=== PATIENT | female | born 1940 | race Caucasian/White ===

== ENCOUNTER 2019-05-28 06:52 | Inpatient (IN) ==
[2019-05-24 13:50] LABS: Appearance,Urine HAZY; Bacteria,Urine FEW /hpf (0); Bilirubin,Urine NEG (NEG); Color,Urine YELLOW; Culture Indicated,Urine NO; Glucose,Urine (UA) NEGATIVE (NEG); Ketones,Urine NEG (NEG); Leukocyte Esterase,Urine 500 /uL (NEG); Mucus,Urine MANY /hpf (0); Nitrate,Urine POS (NEG); Protein,Urine NEG (NEG); Specific Gravity,Urine 1.021 (1.000-1.035); Urine Blood NEG mg/dL (<0.03); Urine Budding Yeast FEW /hpf (0); Urine RBC 19 /hpf (0-1); Urine Squamous Epithelial Cell 5 /hpf (0-4); Urine Transitional Epi Cells 1 /hpf (0-2); Urine WBC > 182 /hpf (0-4); Urobilinogen,Urine NEG (NEG)
[2019-05-24 13:53] LABS: Blood Urea Nitrogen 12 mg/dl (8-23); Calcium 10.1 mg/dl (8.6-10.4); Carbon Dioxide 25 mmol/L (22-30); Chloride 100 mmol/L (96-108); Glomerular Filtration Rate 70; Glucose 97 mg/dL (70-105)
[2019-05-24 13:59] LABS: Basophils # (Auto) 0.06 K/mcL (0.00-0.30); Basophils % (Auto) 0.9 % (0.0-2.0); Eosinophils # (Auto) 0.13 K/mcL (0.00-0.70); Eosinophils % (Auto) 1.9 % (0.0-7.0); Granulocytes % (Auto) 66.7 % (38.0-78.0); Hematocrit 45.4 % (34.1-44.9); Lymphocytes # (Auto) 1.47 K/mcL (1.50-4.80); Lymphocytes % (Auto) 21.6 % (15.5-49.0); Mean Cell Volume 92.8 fL (80.0-100.0); Mean Platelet Volume 9.5 fL (7.4-10.4); Monocytes # (Auto) 0.61 K/mcL (0.10-0.90); Monocytes % (Auto) 8.9 % (1.0-12.0); Platelet Count 276 K/mcL (140-440); RBC 4.89 M/mcL (3.59-5.38); Red Cell Distribution Width 12.5 % (11.5-14.5); WBC 6.8 K/mcL (4.50-11.00)
[2019-05-24 14:12] LABS: Prothrombin Time 12.8 sec (11.9-14.5)
[~2019-05-28 06:52] MED LIST: CELECOXIB 200 MG CAPSULE PO SCH; IPRATROPIUM/ALBUTEROL 3 ML AMPUL.NEB NEB PRN; PREGABALIN 75 MG CAPSULE PO SCH; SCOPOLAMINE 1 PATCH PATCH TOPICAL PRN; ceFAZolin 2 GM in DEXTROSE 5% IN WATER 50 ML IV SCH; oxyCODONE 10 MG TAB.ER.12H PO SCH
[2019-05-28] MEDS ORDERED: PHENYLEPHRINE 10 MG/ML VIAL IV ONE (10:35)
[2019-05-28] MEDS ORDERED: DEXAMETHASONE 10 MG/ML VIAL IV ONE ×2 (10:35→19:19)
[2019-05-28] MEDS ORDERED: TRANEXAMIC ACID 1,000 MG/10 ML VIAL IV ONE ×2 (10:35→12:23)
[2019-05-28] MEDS ORDERED: MIDAZOLAM 2 MG/2 ML VIAL IV ONE (10:35)
[2019-05-28] MEDS ORDERED: ROCURONIUM 10 MG/ML ML IV ONE (10:35)
[2019-05-28] MEDS ORDERED: PROPOFOL 200 MG/20 ML VIAL IV ONE ×2 (10:35→18:09)
[2019-05-28] MEDS ORDERED: KETAMINE 100 MG/ML ML IV ONE (10:35)
[2019-05-28] MEDS ORDERED: ONDANSETRON 4 MG/2 ML VIAL IV ONE (10:35)
[2019-05-28] MEDS ORDERED: LIDOCAINE HCL/PF 100 MG/5 ML SYRINGE IV ONE (10:35)
[2019-05-28] MEDS ORDERED: GLYCOPYRROLATE 0.2 MG/ML VIAL IV ONE (10:35)
[2019-05-28] MEDS ORDERED: GENTAMICIN SULFATE 800 MG/20 ML VIAL IR ONE (10:56)
[2019-05-28] MEDS ORDERED: ACETAMINOPHEN 1,000 MG/100 ML BOTTLE IV ONE (12:04)
[2019-05-28] MEDS ORDERED: ONDANSETRON 4 MG/2 ML VIAL IV PRN ×3 (12:04→19:41)
[2019-05-28] MEDS ORDERED: IPRATROPIUM/ALBUTEROL 3 ML AMPUL.NEB NEB PRN (12:04)
[2019-05-28] MEDS ORDERED: METHOCARBAMOL 1,000 MG/10 ML VIAL IV PRN (12:04)
[2019-05-28] MEDS ORDERED: MEPERIDINE 25 MG/ML SYRINGE IV PRN (12:04)
[2019-05-28] MEDS ORDERED: fentaNYL 100 MCG/2 ML VIAL IV PRN (12:04)
[2019-05-28] MEDS ORDERED: LACTATED RINGERS 1,000 ML IV SCH ×2 (12:15→19:45)
[2019-05-28] MEDS ORDERED: POLYETHYLENE GLYCOL 3350 17 GM PACKET PO PRN ×2 (12:22→12:23)
--- NOTE | 2019-05-28 12:22 | Brief Operative Note ---
Date of procedure: 05/28/19 Pre-op diagnosis: left hip osteoarthritis Post-op diagnosis: same Procedure: left total hip arthroplasty Grafts/Implants: Yes Anesthesia: spinal Complications: none Surgeon: Rico Red Box Office Agent: Zachary Fernandez Estimated blood loss (cc): 200 Specimens Removed/Pathology: none sent Condition: stable Disposition: PACU
--- NOTE | 2019-05-28 12:22 | Discharge Summary ---
Ortho Discharge - [facility] - Patient Instructions Diet: Regular Diet Activity: ambulate with assistive device, weight bearing as tolerated Total Hip Protocol: Follow activity instructions as provided by Physical Therapy. Dressing Care: May shower in 2 days - Follow Up Plan Disposition: Xfer SNF Prognosis: Good Rehab Potential: Good I certify that the patient requires SNF services: Yes Overall status at discharge: patient is progressing back to baseline
[2019-05-28] MEDS ORDERED: HYDROcodone/APAP 10/325MG TABLET PO PRN (12:23)
[2019-05-28] MEDS ORDERED: BISACODYL 10 MG SUPP.RECT PR PRN (12:23)
[2019-05-28] MEDS ORDERED: ONDANSETRON 4 MG ODT TABLET SL PRN (12:23)
[2019-05-28] MEDS ORDERED: BENZOCAINE/MENTHOL 1 LOZENGE PO PRN (12:23)
[2019-05-28] MEDS ORDERED: MAGNESIUM HYDROXIDE 30 ML ORAL.SUSP PO PRN (12:23)
[2019-05-28] MEDS ORDERED: FLEETS ADULT ENEMA PR PRN (12:23)
--- NOTE | 2019-05-28 13:22 | XRay Report ---
HISTORY: Postop left hip replacement FINDINGS: There is a well-positioned left total hip prosthesis. There is no fracture or abnormal soft tissue calcification. Severe arthritis is present in the facet joints at L5-S1. The right hip joint is normal in width. IMPRESSION: Well-positioned left hip prosthesis Interpreted and Authenticated by: Marlon Boyer 05/28/19
[2019-05-28] MEDS ORDERED: 0.9 % SODIUM CHLORIDE 10 ML SYRINGE IV SCH (14:00)
[2019-05-28] MEDS: LACTATED RINGERS 1,000 ML IV SCH ×2 (15:03→16:21)
[2019-05-28] MEDS: KETOROLAC 15 MG/ML VIAL IV PRN (15:10)
--- NOTE | 2019-05-28 15:12 | Operative Note ---
DATE OF OPERATION: 05/28/2019 PREOPERATIVE DIAGNOSIS: Degenerative joint disease, left hip. POSTOPERATIVE DIAGNOSIS: Degenerative joint disease, left hip. PROCEDURE: Left total hip arthroplasty. SURGEON: Tripp Red M.D. [employer]PER[employer]OR [employer] SURGEON: Zachary Fernandez PA-C. The PA's assistance was required for the safe and efficient completion of the entire case. This provider's expertise and technical skill were required throughout the case. The PA assisted with preoperative coordination, intraoperative retraction, wound closure, dressing and splint application, as well as postoperative documentation and care coordination. ANESTHESIA: Spinal with LMA assist. ESTIMATED BLOOD LOSS: 150 mL. COMPLICATIONS: None noted. SPECIMENS REMOVED: None. DRAINS: None. IMPLANTS: DePuy [place] Hole Eliminator; DePuy [place] Gription acetabular shell 50 mm; DePuy [place] cancellous bone screw 6.5 x 20; DePuy [place] Altrx polyethylene acetabular liner neutral 32 x 50; DePuy femoral stem Actis Duofix hip prosthesis, cementless, size 6 standard collar; DePuy Biolox delta ceramic femoral head +1, 32 mm diameter. INDICATIONS: The patient has had a longstanding history of worsening pain in the hip that has failed conservative treatment. Radiographs have confirmed advanced degenerative joint disease. After a long discussion about treatment options, the patient elected to proceed with a hip arthroplasty. The risks and benefits were discussed with the patient in detail including, but not limited to, the risks of anesthesia, problems with the heart or lungs related to anesthesia, infection, compromise or injury to the nerves and blood vessels, deep venous thrombosis, pulmonary embolism, pneumonia, continued pain after surgery, worsening pain or symptoms after surgery, swelling, loss of motion, instability, leg length discrepancy, and need for repeat surgery. DESCRIPTION OF PROCEDURE: The patient was seen in pre-anesthesia waiting room where all questions were answered and the correct side and site were identified and marked. The patient was then brought to the operating room and administered the anesthetic and given pre-operative antibiotics. A timeout was then called. The patient was placed on the [place] table with all prominences well-padded in a standard fashion. Radiographs were taken preliminarily. Anesthesia gave the patient 1 gram of tranexamic acid via an intravenous route. A standard anterior approach was made. We dissected through the skin and subcutaneous tissue and mobile window was created medially and laterally. We placed the preliminary retractor and we came down and visualized the tensor fasciae latae. The tensor fasciae latae was split in line with the incision. I used an Allis clamp to grab the superior aspect of the tensor fasciae latae. We then split the soft tissue underneath the muscle and dissected down into the interval. The tensor fasciae latae was retracted laterally. We came down and split underneath the reflected head of the rectus and rectus for visualization. I then went through some of the fatty tissue and found the lateral femoral circumflex vessels which were coagulated with cautery. I then came down and visualized the capsule. I made an inverted L-shaped incision in the capsule. I placed a tag stitch for later repair. The retractors were placed on the inside of the capsule visualizing the neck. I then brought the saw down to visualize our neck cut. The cut was made and I placed a corkscrew into the head and removed the head. We then placed two turns of traction and some external rotation to visualize the acetabulum. Cobra retractors were placed along the acetabulum for visualization. I used a long-handled knife I was able to perform a complete labral excision. I then removed soft tissue from the pulvinar and the acetabulum. I then began to ream and reamed up to a size 49. Preliminary radiographs were again used. We used JointPoint and got the acetabulum in anatomic position. I then impacted the final Manitou Gription acetabular shell 50 mm diameter with about 45 degrees of abduction and about 20 degrees of anteversion. I placed one Manitou cancellous bone screw 6.5 x 20. I then placed the Altrx polyethylene acetabular liner, neutral 32 x 50. Once this was done, we released some of the capsule along the acetabulum and as well as the greater trochanter, preserving the piriformis. The foot was dropped and brought across in adduction and we exposed the femoral canal. I then used the alaTest cutter, followed by the canal finder and the rasp, and I sequentially broached up to a size 6. I placed a trial size 6 standard collar with a +1 mm head. This was reduced. We used the JointPoint to confirm that our anteversion and leg length were anatomic. She was 4 mm short, so we brought her out to neutral. I then brought this out and thoroughly irrigated with Irrisept and jet lavage. We removed all trials and impacted the femoral stem to its broached location and placed the head. Final reduction was performed. Again, good stability, leg length, and offset characteristics were noted and visualized again with the JointPoint system. We irrigated with three liters of antibiotic saline. We closed the capsule with #2 FiberWire. We closed the fascia with a combination of 0 Vicryl and 0 Maxon. We closed the subcutaneous tissue and skin in layers out to Dermabond on the skin. A sterile pressure dressing was applied. All needle and sponge counts were correct. The patient was transferred to the recovery room in stable condition. JACI:isabel Job ID: [id number] Doc ID: [id number] Tripp Red MD
--- NOTE | 2019-05-28 16:18 | XRay Report ---
HISTORY: FINDINGS: IMPRESSION: 0.7 minutes of fluoroscopy time was used. Interpreted and Authenticated by: Marlon Boyer 05/28/19
[2019-05-28 18:08] LABS: Basophils # (Auto) 0.05 K/mcL (0.00-0.30); Basophils % (Auto) 0.3 % (0.0-2.0); Eosinophils # (Auto) 0.01 K/mcL (0.00-0.70); Eosinophils % (Auto) 0.1 % (0.0-7.0); Granulocytes % (Auto) 84.9 % (38.0-78.0); Hematocrit 43.8 % (34.1-44.9); Hemoglobin 14.5 g/dL (11.2-15.7); Lymphocytes # (Auto) 2.27 K/mcL (1.50-4.80); Lymphocytes % (Auto) 12.2 % (15.5-49.0); Mean Cell Volume 92.4 fL (80.0-100.0); Mean Corpuscular HGB Conc 33.1 g/dL (31.0-36.0); Mean Platelet Volume 9.2 fL (7.4-10.4); Monocytes # (Auto) 0.46 K/mcL (0.10-0.90); Monocytes % (Auto) 2.5 % (1.0-12.0); Platelet Count 259 K/mcL (140-440); RBC 4.74 M/mcL (3.59-5.38); Red Cell Distribution Width 12.3 % (11.5-14.5); WBC 18.7 K/mcL (4.50-11.00)
[2019-05-28] MEDS ORDERED: PROPOFOL 100 ML IV ONE (18:09)
[2019-05-28 18:31] LABS: ALT/SGPT 22 U/l (0-40); AST/SGOT 32 U/l (0-37); Albumin 3.8 gm/dL (3.2-5.2); Albumin/Globulin Ratio 1.7 (1.0-2.3); Alkaline Phosphatase 44 U/L (39-117); Bilirubin,Direct < 0.2 mg/dL (0.0-0.3); Bilirubin,Total 0.4 mg/dL (0.0-1.0); Blood Urea Nitrogen 11 mg/dl (8-23); Calcium 8.8 mg/dl (8.6-10.4); Carbon Dioxide 21 mmol/L (22-30); Chloride 100 mmol/L (96-108); Globulin 2.2 gm/dL (2.2-3.7); Glomerular Filtration Rate 70; Glucose 229 mg/dL (70-105); Lactate Dehydrogenase 281 U/L (94-250); Phosphorous 3.7 mg/dL (2.7-4.5); Triglycerides 67 mg/dl (<150); Uric Acid 3.4 mg/dL (2.5-8.0)
[2019-05-28 18:34] LABS: Prothrombin Time 12.9 sec (11.9-14.5)
--- NOTE | 2019-05-28 18:50 | XRay Report ---
HISTORY: Intubated following cardiac arrest FINDINGS: Endotracheal tube has been inserted. The tip is 1.5 cm above the jose david. There is no pneumothorax or widening of the mediastinum. Mild interstitial lung disease is present bilaterally with the greatest involvement in the lung bases. The heart size is normal. No pleural effusion is present. IMPRESSION: Low-lying endotracheal tube. This could be pulled back 1 to 2 cm. Diffuse interstitial lung disease which could be due to inflammation or fibrosis. Interpreted and Authenticated by: Marlon Boyer 05/28/19
--- NOTE | 2019-05-28 19:00 | Cat Scan Report ---
History: Cardiopulmonary arrest and intubated TECHNIQUE: The chest was imaged dynamically during injection of intravenous nonionic contrast. Sagittal, coronal and axial MIPS images were created. The radiation exposure was limited using dose reduction technology. FINDINGS: There is no evidence of pulmonary emboli. The heart is normal in size and contour. There are no apparent calcified plaques in the coronary arteries. This is a low-lying endotracheal tube with the tip 1.5 cm above the jose david. Several of the tube no foreign body or ingested material is seen within the trachea or bronchi. The patient does have pulmonary fibrosis. There are bands of scar tissue in both lower lobes and posterior The upper lobes. There is mild to moderate bronchiectasis in the right lower lobe. There is no evidence of aspiration or consolidating infiltrate. There is some pleural thickening posteriorly in the right lower thorax. The esophagus is distended with a large amount of fluid. The fluid extends up to the thoracic inlet. The stomach is also distended with a large amount of ingested fluid and air. There is nasogastric tube with the tip in the cardia of the stomach. Incidentally noted is a 3 cm cyst high in the right lobe of liver. IMPRESSION: No evidence of pulmonary emboli or aspiration. Distended stomach and fluid-filled dilated esophagus Pulmonary fibrosis and bronchiectasis Dr. Hamm was called with the results Interpreted and Authenticated by: Marlon Boyer 05/28/19
--- NOTE | 2019-05-28 19:33 | Internal Medicine Consult Note ---
Medical - CN: HPI - Data of Consult Consult date: 05/28/19 Requesting physician: Rico Red Primary Care Provider: Scar Orosco - Consult Narrative History of present illness: Ms. Oneal is a 79 year old F Is a 79-year female who underwent elective total hip arthroplasty today. She arrived on the floor after lunch. For dinner she had large cup of fluid and ate all her dinner. And shortly thereafter appeared to have a respiratory arrest leading to cardiac arrest. Pulses loss from probably 30 seconds or less. Upon [place] however she was not protecting her airway and thus intubation was performed by anesthesia. She was moved back to ICU. She eventually went under a CTA of the chest which showed no evidence of PE or aspiration but did show distended stomach and fluid-filled dilated esophagus. Also incidentally notes some fibrosis and bronchiectasis. Her mentation cleared and she came around after coming back from imaging and showed complete responsiveness and obeying commands. She does have a history of vocal cord paralysis, however, when anesthesia tried to intubate her they noted that her vocal cords were shut tight and she eventually needed paralytic to be intubated. I suspect that the etiology is probably a preceding irritation of the vocal cords from today's surgery coupled with the large amounts of fluid and food she had afterwards leading to refluxing up the esophagus and onto the vocal cord causing severe spasm resulting in respiratory arrest and subsequently cardiac arrest. Laboratory work is essentially unremarkable. Troponin unremarkabe. Lactate is elevated as expected. Reactive leukocytosis. EKG was unremarkable. Is stable and doing well in the ICU. Unable to gather review of systems given intubation CC: Rico Red Medical - CN: PM Medical history: Past medical history: Vocal cord paralysis Hypothyroidism Osteoarthritis GERD Hyper parathyroidism Hypercholesterolemia Past surgical history includes parathyroidectomy hysterectomy Tracheostomy in the past Family: Sister and brother with skin cancer Medical - CN: Meds Home Medications Medication Instructions Recorded Confirmed Type Acetaminophen (Pp) [Tylenol] 325 mg PO DAILYP PRN 05/24/19 05/24/19 History Alendronate Sodium [Fosamax] 70 mg PO TH@0900 05/24/19 05/24/19 History Ferrous Sulfate [Iron] 325 mg PO BID@08,12 05/24/19 05/24/19 History Levothyroxine [Synthroid] 88 mcg PO HS 05/24/19 05/24/19 History Lovastatin [Mevacor] 20 mg PO HS 05/24/19 05/24/19 History Melatonin 10 mg PO HS 05/24/19 05/24/19 History Multivit,Ther Iron,Ca,FA & Min 1 tab PO DAILY 05/24/19 05/24/19 History [Multivitamin W/Minerals] Omeprazole 40 mg PO HS 05/24/19 05/24/19 History Oxybutynin Chloride [Ditropan Xl] 5 mg PO DAILY@1800 05/24/19 05/24/19 History Polyethylene Glycol 3350 [Miralax] 17 gm PO DAILYP PRN 05/24/19 05/24/19 History Propylene Glycol [Systane Balance] 1 gtt OU BID 05/24/19 05/24/19 History Timolol 0.5% Ophth Drops [Timoptic 1 gtt OD DAILY 05/24/19 05/24/19 History 0.5% Ophth Drops] Zolpidem [Ambien] 5 mg PO HS 05/24/19 05/24/19 History Aspirin [Aspirin EC] 81 mg PO BID #60 tablet.dr 05/28/19 Rx HYDROcodone/APAP 10/325MG [[place] 1 - 2 tab PO Q4H PRN #60 tab 05/28/19 Rx 10-325Mg] Allergies Allergy/AdvReac Type Severity Reaction Status Date / Time No Known Drug Allergies Allergy Unverified 05/24/19 10:18 Medical - CN: Exam - Constitutional Vitals: Temp Pulse Resp BP Pulse Ox 97.7 F 83 16 114/75 100 05/28/19 16:00 05/28/19 16:00 05/28/19 16:00 05/28/19 16:00 05/28/19 16:00 Exam: General: Alert, Awake, No acute Distress Eyes/N/T: EOMI, PERRL, Head/Neck: neck supple, normocephalic atraumatic CV: RRR, No murmurs, normal s1/s2 Pulm: Clear b/l, no wheezing/rhonchi/rales Abd: soft, nontender, +BS x4 Ext: no clubbing/cyanosis/edema Neuro: Alert, no focal deficits, moves all extremities, CN 2-12 grossly intact, symmetrical strength b/l upper/lower, sensations intact b/l upper/lower Skin: warm/dry Medical - CN: Result - Labs CBC & Chem 7: 05/28/19 17:38 05/28/19 17:38 Labs: Short CBC 05/28/19 Range/Units 17:38 WBC 18.7 H (4.50-11.00) K/mcL Hgb 14.5 (11.2-15.7) g/dL Hct 43.8 (34.1-44.9) % Plt Count 259 (140-440) K/mcL BMP 05/28/19 17:38 Sodium 136 Potassium 4.1 Chloride 100 Carbon Dioxide 21 L BUN 11 Creatinine 0.8 Glucose 229 H Calcium 8.8 Cardiac Enzymes 05/28/19 Range/Units 17:38 Troponin T < 0.01 (0-0.03) ng/ml Liver Function 05/28/19 Range/Units 17:38 Total Bilirubin 0.4 (0.0-1.0) mg/dL Direct Bilirubin < 0.2 (0.0-0.3) mg/dL GGT 13 (5-36) U/L AST 32 (0-37) U/l ALT 22 (0-40) U/l Alkaline Phosphatase 44 (39-117) U/L Albumin 3.8 (3.2-5.2) gm/dL Medical - CN: A/P - Narrative A/P Narrative: A: *Respiratory arrest leading to brief cardiac arrest: without pulse for less than 30 seconds. No epi occasions given. -Appeared to have severe bronchospasm on intubation -I suspect that the etiology is probably a preceding irritation of the vocal cords from the same day's surgery coupled with the large amounts of fluid and food she had at dinner leading to refluxing up the esophagus and onto the vocal cord causing severe spasm resulting in respiratory arrest and subsequently cardiac arrest. -CTA unremarkable except for dilated stomach and fluid-filled esophagus and incidentally noted fibrosis/bronchiectasis -EKG/trop ok *h/o cord paralysis with history of tracheostomy in the past: *GERD *HLD *Hypothyroid: * P: -vent managment -Decadron x1 given difficulty in intubation -will extubate with anesthesia present -PPI -ortho for hip -pt/ot -ppx: lovenox
[2019-05-28] MEDS ORDERED: ACETAMINOPHEN 160 MG/5 ML ORAL.SOL PT PRN (19:41)
[2019-05-28] MEDS: OXYBUTYNIN CHLORIDE 5 MG TAB.XL.24H PO SCH (20:10)
[2019-05-28] MEDS: ceFAZolin 1 GM VIAL IV SCH (20:48)
[2019-05-28] MEDS: PANTOPRAZOLE 40 MG VIAL IV SCH (20:49)
[2019-05-28] MEDS ORDERED: DOCUSATE SODIUM 100 MG CAPSULE PO SCH (21:00)
[2019-05-28] MEDS: DOCUSATE SODIUM 100 MG CAPSULE PO SCH (21:11)
[2019-05-28] MEDS: ASPIRIN 81 MG TAB.CHEW PO SCH (21:11)
[2019-05-28] MEDS: SENNOSIDES 1 TABLET PO SCH (21:11)
[2019-05-28] MEDS: OMEPRAZOLE 20 MG CAPSULE PO SCH (21:11)
[2019-05-28] MEDS: SIMVASTATIN 10 MG TABLET PO SCH (21:12)
[2019-05-28] MEDS: LEVOTHYROXINE 88 MCG TABLET PO SCH (21:12)
[2019-05-28] MEDS: 0.9 % SODIUM CHLORIDE 10 ML SYRINGE IV SCH (23:10)
[2019-05-29] MEDS ORDERED: 0.9 % SODIUM CHLORIDE 250 ML IV ONE (03:00)
[2019-05-29] MEDS ORDERED: DEXMEDETOMIDINE 100 ML IV ONE (03:02)
[2019-05-29] MEDS: DEXMEDETOMIDINE 400 MCG in PREMIX 1 BAG IV SCH (03:10)
[2019-05-29] MEDS: LACTATED RINGERS 1,000 ML IV SCH ×2 (04:12→21:59)
[2019-05-29] MEDS: ceFAZolin 1 GM VIAL IV SCH (04:17)
[2019-05-29] MEDS: LACTATED RINGERS 250 ML IV SCH ×2 (04:19→04:20)
[2019-05-29] MEDS: 0.9 % SODIUM CHLORIDE 10 ML SYRINGE IV SCH ×3 (06:01→21:28)
[2019-05-29 06:29] LABS: Hematocrit 35.3 % (34.1-44.9); Mean Cell Volume 90.3 fL (80.0-100.0); Mean Platelet Volume 9.8 fL (7.4-10.4); Platelet Count 208 K/mcL (140-440); RBC 3.91 M/mcL (3.59-5.38); Red Cell Distribution Width 12.3 % (11.5-14.5); WBC 10.9 K/mcL (4.50-11.00)
[2019-05-29 06:52] LABS: Bilirubin,Direct < 0.2 mg/dL (0.0-0.3); Chloride 100 mmol/L (96-108)
[2019-05-29 06:55] LABS: ALT/SGPT 15 U/l (0-40); AST/SGOT 29 U/l (0-37); Albumin 3.2 gm/dL (3.2-5.2); Albumin/Globulin Ratio 1.7 (1.0-2.3); Alkaline Phosphatase 33 U/L (39-117); Bilirubin,Total 0.3 mg/dL (0.0-1.0); Blood Urea Nitrogen 15 mg/dl (8-23); Calcium 8.4 mg/dl (8.6-10.4); Carbon Dioxide 20 mmol/L (22-30); Globulin 1.9 gm/dL (2.2-3.7); Glomerular Filtration Rate 70; Glucose 174 mg/dL (70-105); Lactate Dehydrogenase 239 U/L (94-250); Phosphorous 3.2 mg/dL (2.7-4.5); Triglycerides 65 mg/dl (<150); Uric Acid 3.6 mg/dL (2.5-8.0)
[2019-05-29] MEDS ORDERED: LACTATED RINGERS 1,000 ML IV ONE ×3 (07:10→09:24)
--- NOTE | 2019-05-29 07:35 | Internal Med Progress Note ---
Medical - PN: Subj Patient information: Note initiated : 05/29/19 at 7:32 am Service Date, if different from initiated Date: [] Patient: Sharon Oneal 79 y/o F admitted on 05/28/19 for Left Anterior Total Hip Arthroplasty. Chief Complaint: [] Interval history: Is a 79-year female who underwent elective total hip arthroplasty today. She arrived on the floor after lunch. For dinner she had large cup of fluid and ate all her dinner. And shortly thereafter appeared to have a respiratory arrest leading to cardiac arrest. Pulses loss from probably 30 seconds or less. Upon [place] however she was not protecting her airway and thus intubation was performed by anesthesia. She was moved back to ICU. She eventually went under a CTA of the chest which showed no evidence of PE or aspiration but did show distended stomach and fluid-filled dilated esophagus. Also incidentally notes some fibrosis and bronchiectasis. Her mentation cleared and she came around after coming back from imaging and showed complete responsiveness and obeying commands. She does have a history of vocal cord paralysis, however, when anesthesia tried to intubate her they noted that her vocal cords were shut tight and she eventually needed paralytic to be intubated. I suspect that the etiology is probably a preceding irritation of the vocal cords from today's surgery coupled with the large amounts of fluid and food she had afterwards leading to refluxing up the esophagus and onto the vocal cord causing severe spasm resulting in respiratory arrest and subsequently cardiac arrest. Laboratory work is essentially unremarkable. Troponin unremarkabe. Lactate is elevated as expected. Reactive leukocytosis. EKG was unremarkable. Is stable and doing well in the ICU. 05/29 Patient alert and awake on the vent this morning. Low urine output and bolusing lactated Ringer With improvement. No pains or complaints. Currently on CPAP trial. Review of Systems: denies headache/fever/chills/nausea/vomiting/chest or abdominal pain/cough/dyspnea/diarrhea. Otherwise see above. - Constitutional Vitals: Vital Signs Temp Pulse Resp BP Pulse Ox 99.3 F H 65 16 88/47 99 05/29/19 07:01 05/29/19 07:01 05/29/19 07:01 05/29/19 07:01 05/29/19 07:01 Period Temp Pulse Resp BP Sys/Goldman Pulse Ox Last 24 Hr 93.0 F-99.3 F 62-136 12-26 66-178/40-121 95-100 Intake and Output 05/28/19 05/29/19 05/29/19 21:59 05:59 13:59 Intake Total 505 331 6 Output Total 410 65 Balance 505 -79 -59 Weight 69.853 kg Intake & Output: Intake & Output 05/28/19 05/29/19 05/29/19 21:59 05:59 13:59 Intake Total 505 331 6 Output Total 410 65 Balance 505 -79 -59 Weight 69.853 kg Intake: IV 25 331 6 Sodium Chloride 0.9% 250 ml @ 250 Wide Open IV BOLUS ONE Rx#: [id number] Precedex 400 Mcg/100 ml 34 6 Dextrose 400 Mcg In Premix 1 Bag @ 0.2 MCG/KG/HR 3.493 mls/ hr IV .Q24H JESSICA Rx#:[id number] Diprivan 100 ml @ 0 mls/hr IV . 25 47 STK-MED ONE Rx#:[id number] Oral 480 Tube Feeding 0 Output: Gastric Drainage 250 NG/OG 250 Urine Catheter Amount 160 65 Other: Meal Dinner Percent of Meal Consumed 100% Feeding Ability Independent Urine Appearance Clear Uretheral (Cam[place]) Clear Urine Color Bright Yellow Uretheral ([place]) Bright Yellow Exam: General: Alert, Awake, No acute Distress Eyes/N/T: EOMI, , Head/Neck: neck supple, CV: RRR, No murmurs, Pulm: Clear b/l, no wheezing/rhonchi/rales Abd: soft, nontender, +BS x4 Ext: no clubbing/cyanosis/edema Neuro: Alert, no focal deficits, moves all extremities, Skin: warm/dry Medical - PN: Obj Da - Labs CBC & Chem 7: 05/29/19 05:00 05/29/19 05:00 Labs: Abnormal Lab Results 05/29/19 05/28/19 05/28/19 05:00 17:50 17:38 WBC Gran % Lymph % (Auto) Gran # VBG Lactic Acid 3.1 H Carbon Dioxide 20 L 21 L Glucose 174 H 229 H Calcium 8.4 L Alkaline Phosphatase 33 L Lactate Dehydrogenase 281 H Total Protein 5.1 L Globulin 1.9 L 05/28/19 17:38 WBC 18.7 H Gran % 84.9 H Lymph % (Auto) 12.2 L Gran # 15.88 H VBG Lactic Acid Carbon Dioxide Glucose Calcium Alkaline Phosphatase Lactate Dehydrogenase Total Protein Globulin Meds: Medications Acetaminophen (Tylenol) 650 mg PT Q6HP PRN PRN Reason: PAIN/FEVER > 101 Hydrocodone Bitart/Acetaminophen ([place] 10/325mg) 0 tab PO Q4HP PRN PRN Reason: PAIN LEVEL 3-6 Last Admin: 05/28/19 16:07 Dose: 1 tab Documented by: Aspirin (Aspirin) 81 mg PO BID [facility] Last Admin: 05/28/19 21:11 Dose: Not Given Documented by: Bisacodyl (Dulcolax) 10 mg WI Q2-3DAYS PRN PRN Reason: Constipation Chlorhexidine Gluconate (Peridex) 15 ml SWABMOUTH BID [facility] Docusate Sodium (Colace) 100 mg PO BID [facility] Last Admin: 05/28/19 21:11 Dose: Not Given Documented by: Enoxaparin Sodium (Lovenox) 40 mg SQ DAILY [facility] Dexmedetomidine HCl 400 mcg/ (Premix) 100 mls @ 3.493 mls/hr IV .Q24H [facility]; Protocol Last Titration: 05/29/19 06:37 Dose: 0 mcg/kg/hr, 0 mls/hr Documented by: Lactated Ringer's (Lactated Ringers) 1,000 mls @ 75 mls/hr IV .[id number] [facility] Last Admin: 05/29/19 04:12 Dose: 75 mls/hr Documented by: Ketorolac Tromethamine (Toradol) 15 mg IV Q6HP PRN PRN Reason: Pain Stop: 05/30/19 12:25 Last Admin: 05/28/19 15:10 Dose: 15 mg Documented by: Levothyroxine Sodium (Synthroid) 88 mcg PO [facility] Last Admin: 05/28/19 21:12 Dose: Not Given Documented by: Magnesium Hydroxide (Milk Of Magnesia) 30 ml PO BIDP PRN PRN Reason: Constipation Methocarbamol (Robaxin) 750 mg PO Q6HP PRN PRN Reason: Muscle Spasm Morphine Sulfate (Morphine) 0 mg IV Q2HP PRN; Protocol PRN Reason: Per Pain Protocol Last Admin: 05/29/19 03:39 Dose: 3 mg Documented by: Omeprazole (Prilosec) 40 mg PO [facility] Last Admin: 05/28/19 21:11 Dose: Not Given Documented by: Ondansetron HCl (Zofran) 4 mg IV Q4HP PRN PRN Reason: Nausea And Vomiting Ondansetron HCl (Zofran) 4 mg IV Q4-6HP PRN PRN Reason: Nausea And Vomiting Oxybutynin Chloride (Ditropan Xl) 5 mg PO DAILY@1800 [facility] Last Admin: 05/28/19 20:10 Dose: Not Given Documented by: Pantoprazole Sodium (Protonix) 40 mg IV QAMAC [facility] Last Admin: 05/28/19 20:49 Dose: 40 mg Documented by: Polyethylene Glycol (Miralax) 17 gm PO DAILYP PRN PRN Reason: Constipation Polyethylene Glycol (Miralax) 17 gm PO DAILYP PRN PRN Reason: Constipation Senna (Senokot) 2 tab PO [facility] Last Admin: 05/28/19 21:11 Dose: Not Given Documented by: Simvastatin (Zocor) 10 mg PO [facility] Last Admin: 05/28/19 21:12 Dose: Not Given Documented by: Sodium Biphosphate/Sodium Phosphate (Fleets Adult) 1 dose WI Q3-4DAYS PRN PRN Reason: Constipation Sodium Chloride (Saline Flush) 10 ml IV Q8 [facility] Last Admin: 05/29/19 06:01 Dose: Not Given Documented by: Throat Lozenges (Cepacol) 1 lozenge PO PRN PRN PRN Reason: Sore Throat Timolol Maleate (Timoptic 0.5% Ophth Drops) 1 gtt OD DAILY [facility] Medical - PN: A/P - Time Spent With Patient Total time spent is greater than 50% in coordination of care (as documented) at patient's floor/unit and/or counseling patient: - Narrative A/P Narrative: A: *Respiratory arrest leading to brief cardiac arrest: w/o pulse for <30sec, no meds given -Appeared to have severe bronchospasm on intubation -I suspect that the etiology is probably a preceding irritation of the vocal cords from the same day's surgery coupled with the large amounts of fluid and food she had at dinner leading to refluxing up the esophagus and onto the vocal cord causing severe spasm resulting in respiratory arrest and subsequently cardiac arrest. -CTA unremarkable except for dilated stomach and fluid-filled esophagus and incidentally noted fibrosis/bronchiectasis -EKG/trop ok *h/o cord paralysis with history of tracheostomy in the past: *GERD *HLD *Hypothyroid: * P: -vent managment, -will extubate with anesthesia present -Decadron x1 given yesterday after difficulty in intubation -PPI -ortho for hip -pt/ot -ppx: lovenox Medical - PN: Qual - VTE Deep Vein Thrombosis/Pulmonary Embolism Present on Admission: No
[2019-05-29] MEDS: PANTOPRAZOLE 40 MG VIAL IV SCH (07:41)
--- NOTE | 2019-05-29 07:56 | Orthopedic Progress Note ---
Subjective Patient information: Note initiated : 05/29/19 at 7:54 am Service Date, if different from initiated Date: [] Patient: Sharon Oneal 79 y/o F admitted on 05/28/19 for Left Anterior Total Hip Arthroplasty. Chief Complaint: [] Interval history: code blue last night about 20 min after I saw her and she was doing great eating dinner. possibly laryngospasm with her history of trach. Currently intubated but responsive Objective Vital signs: Vital Signs Temp Pulse Pulse Resp Resp BP BP 05/29/19 07:39 16 05/29/19 07:01 99.3 F H 65 16 88/47 05/29/19 06:58 77 16 106/51 05/29/19 06:56 64 18 72/43 05/29/19 06:51 63 16 74/44 05/29/19 06:50 65 16 73/47 05/29/19 06:43 64 16 81/48 05/29/19 06:41 63 16 80/45 05/29/19 06:37 63 16 83/47 05/29/19 06:31 63 16 83/50 05/29/19 06:21 64 16 81/50 05/29/19 06:11 63 16 86/50 05/29/19 06:10 64 16 05/29/19 06:01 99.1 F H 63 16 84/48 05/29/19 05:51 62 16 84/50 05/29/19 05:41 63 16 82/49 05/29/19 05:40 63 16 05/29/19 05:31 63 16 93/52 05/29/19 05:21 64 16 93/55 05/29/19 05:11 63 16 94/52 05/29/19 05:01 62 16 92/53 05/29/19 05:00 16 05/29/19 04:51 63 16 90/52 05/29/19 04:42 66 16 87/50 05/29/19 04:41 68 16 89/53 05/29/19 04:31 69 16 102/57 05/29/19 04:21 71 16 101/55 05/29/19 04:11 73 17 99/59 05/29/19 04:02 76 17 05/29/19 04:01 76 17 108/61 01/08/20 03:51 83 12 112/58 01/08/20 03:41 80 17 95/59 05/29/19 03:33 80 17 101/59 05/29/19 03:21 78 16 87/58 05/29/19 03:13 81 16 77/51 05/29/19 03:01 78 14 96/47 05/29/19 03:00 17 05/29/19 02:53 75 16 92/53 05/29/19 02:42 75 16 91/67 05/29/19 02:35 69 16 93/46 05/29/19 02:33 67 16 75/46 05/29/19 02:31 66 16 73/46 05/29/19 02:21 70 16 92/49 05/29/19 02:11 66 16 73/46 05/29/19 02:03 67 16 05/29/19 02:01 66 16 72/47 05/29/19 02:00 16 05/29/19 01:56 68 16 80/51 05/29/19 01:51 68 16 71/46 05/29/19 01:41 69 16 73/46 05/29/19 01:31 75 16 87/51 05/29/19 01:07 81 15 91/62 05/29/19 01:05 81 12 05/29/19 01:00 16 05/29/19 00:37 80 18 134/40 05/29/19 00:33 79 16 05/29/19 00:17 78 16 105/75 05/29/19 00:09 86 17 05/29/19 00:05 75 16 102/47 05/29/19 00:01 73 16 72/49 05/28/19 23:46 69 16 77/48 05/28/19 23:31 78 16 95/56 05/28/19 23:16 80 20 104/60 05/28/19 23:07 82 16 05/28/19 23:01 83 17 109/63 05/28/19 22:57 16 05/28/19 22:48 73 16 91/51 05/28/19 22:46 74 16 77/51 05/28/19 22:31 81 16 110/58 05/28/19 22:16 97.8 F 81 12 110/58 05/28/19 22:09 85 13 05/28/19 22:01 86 16 98/62 05/28/19 21:46 86 13 100/56 05/28/19 21:33 98 H 17 92/79 05/28/19 21:31 77 16 75/51 05/28/19 21:16 82 16 94/58 05/28/19 21:09 16 05/28/19 21:05 73 16 94/56 05/28/19 21:01 73 16 66/47 05/28/19 20:46 81 16 87/63 05/28/19 20:32 93 H 12 93/67 05/28/19 20:31 80 16 70/53 05/28/19 20:16 94 H 16 114/71 05/28/19 20:01 97 H 16 113/75 05/28/19 19:46 94 H 14 126/79 05/28/19 19:31 96.2 F L 95 H 24 H 123/73 05/28/19 19:27 26 H 05/28/19 19:16 93.0 F L 95 H 19 116/81 05/28/19 19:01 93 H 15 122/75 05/28/19 18:54 95 H 17 144/121 05/28/19 18:53 98 H 12 144/121 05/28/19 18:16 16 110/99 05/28/19 18:02 127 H 23 H 142/107 05/28/19 18:01 130 H 23 H 149/105 05/28/19 17:58 135 H 21 153/105 05/28/19 17:36 133 H 148/84 05/28/19 17:34 135 H 145/87 05/28/19 17:32 136 H 178/102 05/28/19 17:26 110 H 05/28/19 16:00 97.7 F 83 16 114/75 05/28/19 15:15 83 18 114/74 05/28/19 15:00 16 05/28/19 14:45 83 16 97/68 05/28/19 14:30 81 16 97/68 05/28/19 14:15 80 16 97/66 05/28/19 14:00 99/70 05/28/19 13:45 96.8 F L 76 16 119/71 05/28/19 13:25 97.6 F 88 16 108/73 05/28/19 13:15 87 16 107/69 05/28/19 13:05 95 H 15 116/72 05/28/19 13:00 92 H 14 120/76 05/28/19 12:55 88 16 136/84 05/28/19 12:50 80 16 158/87 05/28/19 12:45 70 16 176/94 05/28/19 12:41 98.9 F 94 H 16 177/102 05/28/19 08:00 97.4 F 82 18 115/70 Pulse Ox Pulse Ox 05/29/19 07:39 100 05/29/19 07:01 99 05/29/19 06:58 100 05/29/19 06:56 99 05/29/19 06:51 100 05/29/19 06:50 100 05/29/19 06:43 100 05/29/19 06:41 99 05/29/19 06:37 98 05/29/19 06:31 98 05/29/19 06:21 98 05/29/19 06:11 99 05/29/19 06:10 99 05/29/19 06:01 99 05/29/19 05:51 99 05/29/19 05:41 99 05/29/19 05:40 99 05/29/19 05:31 100 05/29/19 05:21 100 05/29/19 05:11 100 05/29/19 05:01 100 05/29/19 05:00 99 05/29/19 04:51 100 05/29/19 04:42 100 05/29/19 04:41 100 05/29/19 04:31 100 05/29/19 04:21 100 05/29/19 04:11 100 05/29/19 04:02 100 05/29/19 04:01 100 05/29/19 03:51 100 05/29/19 03:41 100 05/29/19 03:33 100 05/29/19 03:21 100 05/29/19 03:13 100 05/29/19 03:01 100 05/29/19 03:00 100 05/29/19 02:53 100 05/29/19 02:42 100 05/29/19 02:35 100 05/29/19 02:33 99 05/29/19 02:31 99 05/29/19 02:21 99 05/29/19 02:11 100 05/29/19 02:03 99 05/29/19 02:01 99 05/29/19 02:00 99 05/29/19 01:56 99 05/29/19 01:51 99 05/29/19 01:41 99 05/29/19 01:31 99 05/29/19 01:07 100 05/29/19 01:05 100 05/29/19 01:00 99 05/29/19 00:37 100 05/29/19 00:33 100 05/29/19 00:17 100 05/29/19 00:09 100 05/29/19 00:05 100 05/29/19 00:01 99 05/28/19 23:46 98 05/28/19 23:31 100 05/28/19 23:16 100 05/28/19 23:07 100 05/28/19 23:01 100 05/28/19 22:57 99 05/28/19 22:48 99 05/28/19 22:46 99 05/28/19 22:31 100 05/28/19 22:16 100 05/28/19 22:09 100 05/28/19 22:01 100 05/28/19 21:46 99 05/28/19 21:33 100 05/28/19 21:31 98 05/28/19 21:16 100 05/28/19 21:09 99 05/28/19 21:05 100 05/28/19 21:01 100 05/28/19 20:46 100 05/28/19 20:32 100 05/28/19 20:31 100 05/28/19 20:16 100 05/28/19 20:01 98 05/28/19 19:46 100 05/28/19 19:31 100 05/28/19 19:27 100 05/28/19 19:16 100 05/28/19 19:01 100 05/28/19 18:54 100 05/28/19 18:53 97 05/28/19 18:16 05/28/19 18:02 100 05/28/19 18:01 100 05/28/19 17:58 100 05/28/19 17:36 100 05/28/19 17:34 05/28/19 17:32 100 05/28/19 17:26 98 05/28/19 16:00 100 05/28/19 15:15 99 05/28/19 15:00 99 05/28/19 14:45 95 05/28/19 14:30 99 05/28/19 14:15 100 05/28/19 14:00 99 05/28/19 13:45 95 05/28/19 13:25 99 05/28/19 13:15 99 05/28/19 13:05 99 05/28/19 13:00 100 05/28/19 12:55 100 05/28/19 12:50 98 05/28/19 12:45 99 05/28/19 12:41 99 05/28/19 08:00 98 Intake and Output 05/28/19 05/29/19 05/29/19 21:59 05:59 13:59 Intake Total 505 331 6 Output Total 410 65 Balance 505 -79 -59 Intake: IV 25 331 6 Sodium Chloride 0.9% 250 ml @ 250 Wide Open IV [facility] Rx#: [id number] Precedex 400 Mcg/100 ml 34 6 Dextrose 400 Mcg In Premix 1 Bag @ 0.2 MCG/KG/HR 3.493 mls/ hr IV .Q24H [facility] Rx#:[id number] Diprivan 100 ml @ 0 mls/hr IV . 25 47 [facility] Rx#:[id number] Oral 480 Tube Feeding 0 Output: Gastric Drainage 250 NG/OG 250 Urine Catheter Amount 160 65 Other: Meal Dinner Percent of Meal Consumed 100% Feeding Ability Independent Urine Appearance Clear Uretheral (Camacho) Clear Urine Color Bright Yellow Uretheral (Camacho) Bright Yellow Weight 154 lb Intake & Output: Intake & Output 05/28/19 05/29/19 05/29/19 21:59 05:59 13:59 Intake Total 505 331 6 Output Total 410 65 Balance 505 -79 -59 Weight 154 lb Intake: IV 25 331 6 Sodium Chloride 0.9% 250 ml @ 250 Wide Open IV [facility] Rx#: [id number] Precedex 400 Mcg/100 ml 34 6 Dextrose 400 Mcg In Premix 1 Bag @ 0.2 MCG/KG/HR 3.493 mls/ hr IV .Q24H [facility] Rx#:[id number] Diprivan 100 ml @ 0 mls/hr IV . 25 47 [facility] Rx#:[id number] Oral 480 Tube Feeding 0 Output: Gastric Drainage 250 NG/OG 250 Urine Catheter Amount 160 65 Other: Meal Dinner Percent of Meal Consumed 100% Feeding Ability Independent Urine Appearance Clear Uretheral (Camacho) Clear Urine Color Bright Yellow Uretheral (Camacho) Bright Yellow Incision: Yes healing Incision clean and dry: Yes Dressing: Yes clean, Yes dry, Yes intact Weight bearing status: full Neurological exam IM: Yes alert, Yes motor sensory intact, Yes neurovascular intact Extremities exam IM: No calf tenderness, Yes Foot pink and warm, Yes neurovascular intact - Labs CBC & BMP: 05/29/19 05:00 05/29/19 05:00 Labs: Orthopedic Labs 05/28/19 05/24/19 17:38 11:01 PT 12.9 12.8 INR 1.0 1.0 05/29/19 05/28/19 05/24/19 05:00 17:38 11:01 Hgb 12.0 14.5 15.0 Hct 35.3 43.8 45.4 H Assessment and Plan (1) Hip osteoarthritis pod 1 s/p chiara await extubation if appropriate per the hositalist [facility] care wbat pain control pt dvt prophylaxis d/c planning - plan rehab when medically appropriate Status: Acute
[2019-05-29 08:11] LABS: Band Neutrophils % 6 % (0-10); Lymphocytes % 10 % (15-49); Monocytes % (Manual) 2 % (1-12); Platelet Estimate NORMAL (NORMAL); RBC Morphology NORMAL (NORMAL); Segmented Neutrophils % 82 % (38-78)
[2019-05-29] MEDS: ASPIRIN 81 MG TAB.CHEW PO SCH ×2 (09:13→21:28)
[2019-05-29] MEDS: DOCUSATE SODIUM 100 MG CAPSULE PO SCH ×2 (09:13→21:28)
[2019-05-29] MEDS: CHLORHEXIDINE GLUCONATE 1 ML ORAL.SOL SWABMOUTH SCH ×2 (09:18→21:30)
[2019-05-29] MEDS: ENOXAPARIN 40 MG/0.4 ML SYRINGE SQ SCH (09:19)
[2019-05-29] MEDS: KETOROLAC 15 MG/ML VIAL IV PRN ×2 (09:38→15:46)
[2019-05-29] MEDS: TIMOLOL 0.5% OPHTH DROPS BOTTLE 5ML OD SCH (10:20)
[2019-05-29] MEDS: OXYBUTYNIN CHLORIDE 5 MG TAB.XL.24H PO SCH (17:46)
[2019-05-29] MEDS: ACETAMINOPHEN 1,000 MG/100 ML BOTTLE IV PRN (18:41)
[2019-05-29] MEDS: OMEPRAZOLE 20 MG CAPSULE PO SCH (21:28)
[2019-05-29] MEDS: LEVOTHYROXINE 88 MCG TABLET PO SCH (21:28)
[2019-05-29] MEDS: SIMVASTATIN 10 MG TABLET PO SCH (21:28)
[2019-05-29] MEDS: SENNOSIDES 1 TABLET PO SCH (21:28)
[2019-05-30] MEDS: DEXMEDETOMIDINE 400 MCG in PREMIX 1 BAG IV SCH (03:49)
[2019-05-30] MEDS: KETOROLAC 15 MG/ML VIAL IV PRN ×2 (03:52→11:11)
[2019-05-30 05:52] LABS: Hematocrit 30.6 % (34.1-44.9); Hemoglobin 10.1 g/dL (11.2-15.7)
[2019-05-30] MEDS: 0.9 % SODIUM CHLORIDE 10 ML SYRINGE IV SCH ×3 (05:53→20:21)
--- NOTE | 2019-05-30 07:13 | Orthopedic Progress Note ---
Orthopedics - Auxillary Note - Subjective Patient Information: Note initiated : 05/30/19 at 7:11 am Service Date, if different from initiated Date: [] Patient: Sharon Oneal 79 y/o F admitted on 05/28/19 for Left Anterior Total Hip Arthroplasty. Chief Complaint: mild pain, generalized weakness. NVI-distal bandages c/d/i Vital Signs Temp Pulse Resp Resp BP Pulse Ox Pulse Ox 05/30/19 06:00 98.6 F 80 23 H 97 05/30/19 05:01 98.4 F 79 8 L 112/56 96 05/30/19 04:01 98.2 F 20 110/61 05/30/19 03:01 98.3 F 80 22 109/63 98 05/30/19 02:01 98.4 F 65 22 98/51 96 05/30/19 01:31 98.5 F 64 21 97/49 96 05/30/19 01:01 98.5 F 60 17 98/49 97 05/30/19 00:31 98.6 F 60 25 H 93/50 97 05/30/19 00:01 98.6 F 60 18 91/51 97 05/29/19 23:31 98.7 F 67 22 97/48 96 05/29/19 23:01 98.8 F 66 21 94/49 96 05/29/19 22:31 99.0 F 66 22 101/51 95 05/29/19 22:04 99.0 F 65 95/47 97 05/29/19 20:31 99.1 F H 72 23 H 95/71 93 05/29/19 20:01 99.3 F H 82 23 H 101/55 97 05/29/19 19:31 99.4 F H 79 11 L 90/50 98 05/29/19 19:01 99.4 F H 77 17 106/78 98 05/29/19 18:31 98.9 F 60 20 88/76 85 L 05/29/19 18:01 99.1 F H 72 14 107/63 96 05/29/19 17:31 85 19 96/53 95 05/29/19 17:01 83 10 L 95/47 96 05/29/19 16:35 66 9 L 100/48 98 05/29/19 16:01 98.8 F 63 13 103/59 100 05/29/19 15:31 74 11 L 90/55 97 05/29/19 15:01 77 22 91/60 91 05/29/19 14:31 73 12 104/54 94 05/29/19 14:01 64 11 L 99/51 100 05/29/19 13:44 62 13 96/55 92 05/29/19 13:41 24 H 75/64 05/29/19 13:40 25 H 05/29/19 13:36 99.3 F H 15 91/47 05/29/19 13:35 99.3 F H 17 97/83 05/29/19 13:31 99.3 F H 73 100/55 98 05/29/19 13:01 98.9 F 20 92/48 05/29/19 12:31 99.5 F H 81 22 95/50 96 05/29/19 12:01 99.5 F H 75 13 93/48 97 05/29/19 11:31 99.7 F H 79 8 L 96/47 99 05/29/19 11:21 99.7 F H 79 20 97/54 99 05/29/19 11:11 99.7 F H 80 14 104/51 99 05/29/19 11:01 99.8 F H 85 16 105/54 97 05/29/19 10:51 99.7 F H 81 8 L 109/57 100 05/29/19 10:41 99.8 F H 85 12 112/60 100 05/29/19 10:31 99.7 F H 82 17 103/54 100 05/29/19 10:21 99.3 F H 82 22 104/59 100 05/29/19 10:11 99.0 F 65 14 125/91 100 05/29/19 10:01 99.4 F H 72 16 110/57 100 05/29/19 09:51 98.9 F 63 10 L 105/48 100 05/29/19 09:41 98.9 F 80 16 108/54 100 05/29/19 09:31 99.4 F H 81 18 103/49 100 05/29/19 09:21 99.6 F H 79 20 99/51 100 05/29/19 09:20 20 95 95 05/29/19 09:11 99.6 F H 65 15 95/44 100 05/29/19 09:01 99.4 F H 65 14 97/49 100 05/29/19 08:51 99.7 F H 18 93/38 05/29/19 08:41 99.8 F H 68 18 92/50 100 05/29/19 08:31 99.8 F H 65 16 90/48 100 05/29/19 08:21 99.7 F H 63 18 91/45 99 05/29/19 08:18 99.9 F H 63 18 91/45 99 05/29/19 08:16 99.9 F H 63 13 86/44 99 05/29/19 08:11 99.6 F H 18 75/56 05/29/19 08:01 100.2 F H 64 16 82/45 99 05/29/19 08:00 100 05/29/19 07:51 100.2 F H 62 16 81/44 100 05/29/19 07:41 100.2 F H 62 16 85/45 100 05/29/19 07:39 16 100 05/29/19 07:31 100.2 F H 59 L 17 88/48 100 05/29/19 07:28 100.3 F H 62 19 85/44 99 05/29/19 07:21 100.3 F H 61 16 86/45 99 Intake and Output 05/29/19 05/30/19 05/30/19 21:59 05:59 13:59 Intake Total 1200 Output Total 303 750 Balance 897 -750 Intake: IV 1000 Lactated Ringers 1,000 ml @ 75 1000 mls/hr IV .[id number] [facility] Rx#: [id number] Oral 200 Output: Gastric Drainage 125 NG/OG 125 Urine Catheter Amount 178 750 Other: Meal Dinner Percent of Meal Consumed 50% Feeding Ability Independent Nourishment/Supplement name bites of apple sauce, jellow and egg salad with ST Urine Appearance Clear Clear Uretheral (Camacho) Clear Urine Color Bright Yellow Bright Yellow Uretheral (Camacho) Bright Yellow Laboratory Results - last 24 hr 05/29/19 05/30/19 05:00 04:40 Hgb 10.1 L Hct 30.6 L Total Counted 100 Seg Neutrophils % 82 H Band Neutrophils % 6 Lymphocytes % 10 L Monocytes % (Manual) 2 Platelet Estimate Normal RBC Morphology Normal s/p L PALLAVI-stable cont medical management per hospitalist. discharge to SNF when cleared by hospitalist. mobilize with PT
[2019-05-30] MEDS: PANTOPRAZOLE 40 MG VIAL IV SCH (07:24)
[2019-05-30] MEDS: ACETAMINOPHEN 1,000 MG/100 ML BOTTLE IV PRN (07:25)
[2019-05-30] MEDS: DOCUSATE SODIUM 100 MG CAPSULE PO SCH ×2 (08:41→20:20)
[2019-05-30] MEDS: ENOXAPARIN 40 MG/0.4 ML SYRINGE SQ SCH (08:41)
[2019-05-30] MEDS: ASPIRIN 81 MG TAB.CHEW PO SCH ×2 (08:41→20:19)
[2019-05-30] MEDS: CHLORHEXIDINE GLUCONATE 1 ML ORAL.SOL SWABMOUTH SCH (10:24)
[2019-05-30] MEDS ORDERED: MAGNESIUM SULFATE 2 GM/50 ML BAG IV ONE (10:56)
--- NOTE | 2019-05-30 11:07 | Internal Med Progress Note ---
Medical - PN: Subj Patient information: Note initiated : 05/30/19 at 11:06 am Service Date, if different from initiated Date: [] Patient: Sharon Oneal 79 y/o F admitted on 05/28/19 for Left Anterior Total Hip Arthroplasty. Chief Complaint: [] Interval history: 79-year female who underwent elective total hip arthroplasty today. She arrived on the floor after lunch. For dinner she had large cup of fluid and ate all her dinner. And shortly thereafter appeared to have a respiratory arrest leading to cardiac arrest. Pulses loss from probably 30 seconds or less. Upon [place] however she was not protecting her airway and thus intubation was performed by anesthesia. She was moved back to ICU. She eventually went under a CTA of the chest which showed no evidence of PE or aspiration but did show distended stomach and fluid-filled dilated esophagus. Also incidentally notes some fibrosis and bronchiectasis. Her mentation cleared and she came around after coming back from imaging and showed complete responsiveness and obeying commands. She does have a history of vocal cord paralysis, however, when anesthesia tried to intubate her they noted that her vocal cords were shut tight and she e ventually needed paralytic to be intubated. I suspect that the etiology is probably a preceding irritation of the vocal cords from today's surgery coupled with the large amounts of fluid and food she had afterwards leading to refluxing up the esophagus and onto the vocal cord causing severe spasm resulting in respiratory arrest and subsequently cardiac arrest. Laboratory work is essentially unremarkable. Troponin unremarkabe. Lactate is elevated as expected. Reactive leukocytosis. EKG was unremarkable. Is stable and doing well in the ICU. 05/29 Patient alert and awake on the vent this morning. Low urine output and bolusing lactated Ringer With improvement. No pains or complaints. Currently on CPAP trial. 05/30 Patient had 20 run of V. tach and started on metoprolol 12.5 twice daily Her blood pressure improved Asymptomatic Ordered an echocardiogram Repeat troponin Given mag 2 g to keep the mag level more than 2 Recheck mag CBC and CMP We will reduce dose of muscle relaxant Pertinent ROS: Respiratory-no shortness of breath no hypoxia off of oxygen Cardiac-no chest pain no palpitations Abdominal-no diarrhea no constipation complaining of acid reflux Neuro-no focal neuro deficit, no seizure no dizziness Psychiatric-anxiety no depression Musculoskeletal-pain under control working with the PT - Constitutional Vitals: Vital Signs Temp Pulse Resp BP Pulse Ox 99.5 F H 77 22 108/54 97 05/30/19 10:01 05/30/19 08:01 05/30/19 10:01 05/30/19 10:01 05/30/19 10:01 Period Temp Pulse Resp BP Sys/Goldman Pulse Ox Last 24 Hr 98.2 F-99.7 F 60-85 8-25 75-117/47-83 85-100 Intake and Output 05/29/19 05/30/19 05/30/19 21:59 05:59 13:59 Intake Total 1300 340 Output Total 303 750 420 Balance 997 -750 -80 Intake & Output: Intake & Output 05/29/19 05/30/19 05/30/19 21:59 05:59 13:59 Intake Total 1300 340 Output Total 303 750 420 Balance 997 -750 -80 Intake: IV 1100 100 Lactated Ringers 1,000 ml @ 75 1000 mls/hr IV .[id number] [facility] Rx#: [id number] Oral 200 240 Output: Gastric Drainage 125 NG/OG 125 Urine Catheter Amount 178 750 420 Other: Meal Dinner Breakfast Percent of Meal Consumed 50% 100% Feeding Ability Independent Nourishment/Supplement name bites of apple sauce, jellow and egg salad with ST Urine Appearance Clear Clear Uretheral (Camacho) Clear Urine Color Bright Yellow Bright Yellow Uretheral (Camacho) Bright Yellow General appearance: cooperative, no acute distress - Head Head exam: Present: atraumatic, normal inspection - Eye Eye exam: Present: normal appearance. Absent: nystagmus, periorbital swelling, periorbital tenderness - ENT ENT exam: Present: mucous membranes moist, normal oropharynx. Absent: normal exam - Respiratory Respiratory exam: Present: decreased breath sounds. Absent: rhonchi, stridor, wheezes - Cardiovascular Cardiovascular exam: Present: systolic murmur. Absent: JVD, +S3, +S4 - GI/Abdominal GI/Abdominal exam: Present: normal bowel sounds, soft. Absent: bruit - Neurological Exam Neurological exam: Present: alert, motor sensory deficit, oriented X3, reflexes normal - Psychiatric Psychiatric exam: Absent: agitated, anxious, depressed Medical - PN: Obj Da - Labs CBC & Chem 7: 05/30/19 04:40 05/29/19 05:00 Labs: Abnormal Lab Results 05/30/19 05/29/19 05/29/19 04:40 05:00 05:00 WBC Hgb 10.1 L Hct 30.6 L Gran % Lymph % (Auto) Gran # Seg Neutrophils % 82 H Lymphocytes % 10 L VBG Lactic Acid Carbon Dioxide 20 L Glucose 174 H Calcium 8.4 L Alkaline Phosphatase 33 L Lactate Dehydrogenase Total Protein 5.1 L Globulin 1.9 L 05/28/19 05/28/19 05/28/19 17:50 17:38 17:38 WBC 18.7 H Hgb Hct Gran % 84.9 H Lymph % (Auto) 12.2 L Gran # 15.88 H Seg Neutrophils % Lymphocytes % VBG Lactic Acid 3.1 H Carbon Dioxide 21 L Glucose 229 H Calcium Alkaline Phosphatase Lactate Dehydrogenase 281 H Total Protein Globulin Meds: Medications Acetaminophen (Tylenol) 650 mg PT Q6HP PRN PRN Reason: PAIN/FEVER > 101 Aspirin (Aspirin) 81 mg PO BID [facility] Last Admin: 05/30/19 08:41 Dose: 81 mg Documented by: Bisacodyl (Dulcolax) 10 mg [place] Q2-3DAYS PRN PRN Reason: Constipation Docusate Sodium (Colace) 100 mg PO BID [facility] Last Admin: 05/30/19 08:41 Dose: 100 mg Documented by: Enoxaparin Sodium (Lovenox) 40 mg SQ DAILY [facility] Last Admin: 05/30/19 08:41 Dose: 40 mg Documented by: Lactated Ringer's (Lactated Ringers) 1,000 mls @ 75 mls/hr IV .[id number] [facility] Last Admin: 05/29/19 21:59 Dose: 75 mls/hr Documented by: Acetaminophen (Ofirmev) 1,000 mg in 100 mls @ 130 mls/hr IV Q8H PRN; Protocol PRN Reason: PAIN/FEVER > 101 Last Infusion: 05/30/19 08:12 Dose: Infused Documented by: Magnesium Sulfate (Magnesium Sulfate) 2 gm in 50 mls @ 25 mls/hr IV ONCE ONE Stop: 05/30/19 12:55 Ketorolac Tromethamine (Toradol) 15 mg IV Q6HP PRN PRN Reason: Pain Stop: 05/30/19 12:25 Last Admin: 01/09/20 03:52 Dose: 15 mg Documented by: Levothyroxine Sodium (Synthroid) 88 mcg PO [facility] Last Admin: 05/29/19 21:28 Dose: 88 mcg Documented by: Magnesium Hydroxide (Milk Of Magnesia) 30 ml PO BIDP PRN PRN Reason: Constipation Methocarbamol (Robaxin) 750 mg PO Q6HP PRN PRN Reason: Muscle Spasm Metoprolol Tartrate (Lopressor) 12.5 mg PO BID [facility] Omeprazole (Prilosec) 40 mg PO [facility] Last Admin: 05/29/19 21:28 Dose: 40 mg Documented by: Ondansetron HCl (Zofran) 4 mg IV Q4HP PRN PRN Reason: Nausea And Vomiting Ondansetron HCl (Zofran) 4 mg IV Q4-6HP PRN PRN Reason: Nausea And Vomiting Oxybutynin Chloride (Ditropan Xl) 5 mg PO DAILY@1800 [facility] Last Admin: 05/29/19 17:46 Dose: 5 mg Documented by: Polyethylene Glycol (Miralax) 17 gm PO DAILYP PRN PRN Reason: Constipation Senna (Senokot) 2 tab PO [facility] Last Admin: 05/29/19 21:28 Dose: 2 tab Documented by: Simvastatin (Zocor) 10 mg PO [facility] Last Admin: 05/29/19 21:28 Dose: 10 mg Documented by: Sodium Biphosphate/Sodium Phosphate (Fleets Adult) 1 dose [place] Q3-4DAYS PRN PRN Reason: Constipation Sodium Chloride (Saline Flush) 10 ml IV Q8 [facility] Last Admin: 05/30/19 05:53 Dose: 10 ml Documented by: Throat Lozenges (Cepacol) 1 lozenge PO PRN PRN PRN Reason: Sore Throat Timolol Maleate (Timoptic 0.5% Ophth Drops) 1 gtt OD DAILY [facility] Last Admin: 05/29/19 10:20 Dose: 1 gtt Documented by: Medical - PN: A/P - Time Spent With Patient Total time spent is greater than 50% in coordination of care (as documented) at patient's floor/unit and/or counseling patient: - Narrative A/P Narrative: Probable respiratory arrest postoperatively Acute hypoxic respiratory failure Patient had a possible cardiopulmonary arrest and severe bronchospasm found on intubation The possibility either she was aspirated or she had a severe bronchospasm from anesthesia and subsequent cardiac arrest CTA was unremarkable except dilated stomach and fluid-filled esophagus and noticed bronchiectasis EKG initial troponin was unremarkable Ordered a serial troponin Patient has history of cord paralysis with history of tracheostomy in the past Ordered an echocardiogram Patient is status post extubation and doing well with oxygenation She is off of oxygen Probable V. tach nonsustained Patient also had a 20 run of V. tach Needs outpatient stress test Started beta-rossana Telemetry monitoring Trend the troponin Pending echocardiogram results History of hyperlipidemia Continue statin Hypothyroidism Continue levothyroxine Right hip arthroplasty Orthopedic following Prophylaxis-continue Lovenox PT OT continue Medical - PN: Qual - VTE Deep Vein Thrombosis/Pulmonary Embolism Present on Admission: No
[2019-05-30 11:37] LABS: Basophils # (Auto) 0.02 K/mcL (0.00-0.30); Basophils % (Auto) 0.2 % (0.0-2.0); Eosinophils # (Auto) 0.02 K/mcL (0.00-0.70); Eosinophils % (Auto) 0.2 % (0.0-7.0); Granulocytes % (Auto) 77.6 % (38.0-78.0); Hemoglobin 11.3 g/dL (11.2-15.7); Lymphocytes % (Auto) 14.7 % (15.5-49.0); Mean Cell Volume 93.7 fL (80.0-100.0); Mean Corpuscular HGB Conc 33.2 g/dL (31.0-36.0); Mean Platelet Volume 9.6 fL (7.4-10.4); Monocytes # (Auto) 0.74 K/mcL (0.10-0.90); Monocytes % (Auto) 7.3 % (1.0-12.0); Platelet Count 159 K/mcL (140-440); RBC 3.63 M/mcL (3.59-5.38); Red Cell Distribution Width 13.1 % (11.5-14.5); WBC 10.2 K/mcL (4.50-11.00)
[2019-05-30] MEDS: METOPROLOL TARTRATE 25 MG TABLET PO SCH ×2 (11:56→20:20)
[2019-05-30 12:04] LABS: ALT/SGPT 13 U/l (0-40); AST/SGOT 32 U/l (0-37); Albumin/Globulin Ratio 1.3 (1.0-2.3); Alkaline Phosphatase 35 U/L (39-117); Bilirubin,Total 0.4 mg/dL (0.0-1.0); Blood Urea Nitrogen 15 mg/dl (8-23); Calcium 8.8 mg/dl (8.6-10.4); Carbon Dioxide 21 mmol/L (22-30); Chloride 106 mmol/L (96-108); Globulin 2.3 gm/dL (2.2-3.7); Glomerular Filtration Rate 82; Glucose 101 mg/dL (70-105)
[2019-05-30] MEDS: LACTATED RINGERS 1,000 ML IV SCH (13:10)
[2019-05-30] MEDS: oxyCODONE HCL 5 MG TABLET PO PRN ×2 (13:13→20:19)
[2019-05-30] MEDS: TIMOLOL 0.5% OPHTH DROPS BOTTLE 5ML OD SCH (13:14)
[2019-05-30] MEDS: OXYBUTYNIN CHLORIDE 5 MG TAB.XL.24H PO SCH (17:12)
[2019-05-30] MEDS: OMEPRAZOLE 20 MG CAPSULE PO SCH (20:20)
[2019-05-30] MEDS: LEVOTHYROXINE 88 MCG TABLET PO SCH (20:20)
[2019-05-30] MEDS: SIMVASTATIN 10 MG TABLET PO SCH (20:20)
[2019-05-30] MEDS: SENNOSIDES 1 TABLET PO SCH (20:20)
[2019-05-30] MEDS: METHOCARBAMOL 750 MG TABLET PO PRN (23:03)
[2019-05-31] MEDS: oxyCODONE HCL 5 MG TABLET PO PRN ×3 (03:16→13:52)
[2019-05-31] MEDS: 0.9 % SODIUM CHLORIDE 10 ML SYRINGE IV SCH ×2 (04:50→13:53)
--- NOTE | 2019-05-31 06:36 | Orthopedic Progress Note ---
Subjective Patient information: Note initiated : 05/31/19 at 6:34 am Service Date, if different from initiated Date: [] Patient: Sharon Oneal 79 y/o F admitted on 05/28/19 for Left Anterior Total Hip Arthroplasty. Chief Complaint: [] Interval history: doing better. extubated. doing well from hip standpoint Objective Vital signs: Vital Signs Temp Pulse Resp BP Pulse Ox 05/31/19 06:06 30 H 94 05/31/19 06:01 28 H 123/60 98 05/31/19 05:40 22 99 05/31/19 05:02 19 158/61 95 05/31/19 04:07 16 100 05/31/19 04:03 97.8 F 14 122/69 100 05/31/19 03:59 18 99 05/31/19 03:19 126/70 100 05/31/19 02:01 98.2 F 24 H 112/57 97 05/31/19 01:01 25 H 119/62 97 05/31/19 00:41 23 H 98 05/31/19 00:01 17 113/57 97 05/30/19 23:07 17 125/67 100 05/30/19 22:01 11 L 114/58 05/30/19 21:30 17 98 05/30/19 21:01 98.2 F 27 H 114/56 95 05/30/19 20:46 26 H 96 05/30/19 20:01 20 104/55 92 05/30/19 19:30 95 05/30/19 19:01 29 H 100/55 98 05/30/19 18:01 27 H 118/54 96 05/30/19 17:01 21 116/59 94 05/30/19 16:01 98.3 F 17 101/54 95 05/30/19 15:01 19 91/59 96 05/30/19 14:01 24 H 114/60 97 05/30/19 14:00 15 96 05/30/19 13:01 99.4 F H 14 119/66 97 05/30/19 12:01 99.5 F H 17 127/62 98 05/30/19 11:01 99.5 F H 15 109/59 05/30/19 10:45 99.5 F H 22 125/63 83 L 05/30/19 10:01 99.5 F H 22 108/54 97 05/30/19 09:01 99.3 F H 17 112/52 97 05/30/19 08:01 98.9 F 77 17 117/62 98 05/30/19 07:01 98.7 F 75 116/57 96 Intake and Output 05/30/19 05/31/19 05/31/19 21:59 05:59 13:59 Intake Total 240 Output Total 960 980 200 Balance -720 -980 -200 Intake: Oral 240 Output: Gastric Drainage 125 NG/OG 125 Urine Catheter Amount 835 980 200 Other: Meal Dinner Percent of Meal Consumed 75% Urine Appearance Clear Clear Clear Uretheral (Camacho) Clear Clear Urine Color Bright Yellow Bright Yellow Bright Yellow Uretheral (Camacho) Bright Yellow Bright Yellow Stool Size Large Stool Color Green Stool Consistency Loose # Bowel Movements 1 Weight 168 lb 174 lb 12.8 oz Patient Weight 06/01/19 05:59 Weight 174 lb 12.8 oz Intake & Output: Intake & Output 05/30/19 05/31/19 05/31/19 21:59 05:59 13:59 Intake Total 240 Output Total 960 980 200 Balance -720 -980 -200 Weight 168 lb 174 lb 12.8 oz Intake: Oral 240 Output: Gastric Drainage 125 NG/OG 125 Urine Catheter Amount 835 980 200 Other: Meal Dinner Percent of Meal Consumed 75% Urine Appearance Clear Clear Clear Uretheral ([place]acho) Clear Clear Urine Color Bright Yellow Bright Yellow Bright Yellow Uretheral (Camacho) Bright Yellow Bright Yellow Stool Size Large Stool Color Green Stool Consistency Loose # Bowel Movements 1 Incision: Yes healing Incision clean and dry: Yes Dressing: Yes clean, Yes dry, Yes intact Weight bearing status: full Neurological exam IM: Yes abnormal gait, Yes alert, Yes oriented X3, Yes motor sensory intact, Yes neurovascular intact Extremities exam IM: No calf tenderness, Yes Foot pink and warm, Yes neurovascular intact - Labs CBC & BMP: 05/30/19 11:04 05/30/19 11:04 Labs: Orthopedic Labs 05/28/19 05/24/19 17:38 11:01 PT 12.9 12.8 INR 1.0 1.0 05/31/19 05/30/19 05/30/19 05:05 11:04 04:40 Hgb Pending 11.3 10.1 L Hct Pending 34.0 L 30.6 L 05/29/19 05/28/19 05/24/19 05:00 17:38 11:01 Hgb 12.0 14.5 15.0 Hct 35.3 43.8 45.4 H Assessment and Plan (1) Hip osteoarthritis pod 3 s/p chiara extubated [facility] care wbat pain control pt dvt prophylaxis d/c planning - plan rehab when medically appropriate Status: Acute
[2019-05-31 07:09] LABS: Hematocrit 34.4 % (34.1-44.9)
[2019-05-31] MEDS ORDERED: ACETAMINOPHEN (PP) 160 MG/5 ML BOTTLE (#120) PO PRN (08:00)
[2019-05-31] MEDS: TIMOLOL 0.5% OPHTH DROPS BOTTLE 5ML OD SCH (09:23)
[2019-05-31] MEDS: ASPIRIN 81 MG TAB.CHEW PO SCH (09:23)
[2019-05-31] MEDS: DOCUSATE SODIUM 100 MG CAPSULE PO SCH (09:23)
[2019-05-31] MEDS: ENOXAPARIN 40 MG/0.4 ML SYRINGE SQ SCH (09:23)
[2019-05-31] MEDS: METOPROLOL TARTRATE 25 MG TABLET PO SCH (09:23)
--- NOTE | 2019-05-31 11:04 | Discharge Summary ---
Medical - DS: Prov Patient information: Note initiated : 05/31/19 at 11:02 am Service Date, if different from initiated Date: [] Patient: Sharon Oneal 79 y/o F admitted on 05/28/19 for Left Anterior Total Hip Arthroplasty. Chief Complaint: [] Date of admission: 05/28/19 06:52 Discharge date: 05/31/19 Primary care physician: Scar Orosco Consults: 05/28/19 17:38 Consult to Physician [CONS] Routine Comment: Consulting Provider: Gian Hamm Reason For Exam: Physician to Consult Medical - DS: Meds - Discharge Medications Prescriptions: Aspirin [Aspirin EC] 81 mg PO BID #60 tablet.dr Transmission Status: Sent to [facility]. Metoprolol Tartrate [Lopressor] 12.5 mg PO BID #60 tab Prescription Printed HYDROcodone/APAP 10/325MG [[place] 10-325Mg] 1 - 2 tab PO Q4H PRN #60 tab PRN Reason: Pain Prescription Printed Methocarbamol [Robaxin] 500 mg PO BID PRN #30 tab PRN Reason: Muscle Spasm Prescription Printed Active and Home Medications: Home Medications Acetaminophen (Pp) [Tylenol] 325 mg PO DAILYP PRN 05/24/19 [History Confirmed 05/24/19 Last Taken Unknown] Alendronate Sodium [Fosamax] 70 mg PO TH@0900 05/24/19 [History Confirmed 05/24/19 Last Taken Unknown] Ferrous Sulfate [Iron] 325 mg PO BID@08,12 05/24/19 [History Confirmed 05/24/19 Last Taken Unknown] Levothyroxine [Synthroid] 88 mcg PO HS 05/24/19 [History Confirmed 05/24/19 Last Taken Unknown] Lovastatin [Mevacor] 20 mg PO HS 05/24/19 [History Confirmed 05/24/19 Last Taken Unknown] Melatonin 10 mg PO HS 05/24/19 [History Confirmed 05/24/19 Last Taken Unknown] Multivit,Ther Iron,Ca,FA & Min [Multivitamin W/Minerals] 1 tab PO DAILY 05/24/19 [History Confirmed 05/24/19 Last Taken Unknown] Omeprazole 40 mg PO HS 05/24/19 [History Confirmed 05/24/19 Last Taken Unknown] Oxybutynin Chloride [Ditropan Xl] 5 mg PO DAILY@1800 05/24/19 [History Confirmed 05/24/19 Last Taken Unknown] Polyethylene Glycol 3350 [Miralax] 17 gm PO DAILYP PRN 05/24/19 [History Confirmed 05/24/19 Last Taken Unknown] Propylene Glycol [Systane Balance] 1 gtt OU BID 05/24/19 [History Confirmed 05/24/19 Last Taken Unknown] Timolol 0.5% Ophth Drops [Timoptic 0.5% Ophth Drops] 1 gtt OD DAILY 05/24/19 [History Confirmed 05/24/19 Last Taken Unknown] Zolpidem [Ambien] 5 mg PO HS 05/24/19 [History Confirmed 05/24/19 Last Taken Unknown] Aspirin [Aspirin EC] 81 mg PO BID #60 tablet. 05/28/19 [Rx Last Taken Unknown] HYDROcodone/APAP 10/325MG [[place] 10-325Mg] 1 - 2 tab PO Q4H PRN #60 tab 05/28/19 [Rx Last Taken Unknown] Propylene Glycol [Systane Balance] 1 gtt OU BID 05/29/19 [History Confirmed 05/29/19 Last Taken Unknown] Methocarbamol [Robaxin] 500 mg PO BID PRN #30 tab 05/31/19 [Rx Last Taken Unknown] Metoprolol Tartrate [Lopressor] 12.5 mg PO BID #60 tab 05/31/19 [Rx Last Taken Unknown] Medical - DS: Hosp Hospital Course: 79-year female who underwent elective total hip arthroplasty today. She arrived on the floor after lunch. For dinner she had large cup of fluid and ate all her dinner. And shortly thereafter appeared to have a respiratory arrest leading to cardiac arrest.Pulses loss from probably 30 seconds or less. Upon [place] however she was not protecting her airway and thus intubation was performed by anesthesia. She was moved back to ICU. She eventually went under a CTA of the chest which showed no evidence of PE or aspiration but did show distended stomach and fluid- filled dilated esophagus. Also incidentally notes some fibrosis and bronchiectasis.Her mentation cleared and she came around after coming back from imaging and showed complete responsiveness and obeying commands. She does have a history of vocal cord paralysis, however, when anesthesia tried to intubate her they noted that her vocal cords were shut tight and she eventually needed paralytic to be intubated. I suspect that the etiology is probably a preceding irritation of the vocal cords from today's surgery coupled with the large amounts of fluid and food she had afterwards leading to refluxing up the esophagus and onto the vocal cord causing severe spasm resulting in respiratory arrest and subsequently cardiac arrest. Laboratory work is essentially unremarkable. Troponin unremarkabe. Lactate is elevated as expected. Reactive leukocytosis.EKG was unremarkable.Is stable and doing well in the ICU. 05/29 Patient alert and awake on the vent this morning. Low urine output and bolusing lactated Ringer With improvement. No pains or complaints. Currently on CPAP trial. 05/30 Patient had 20 run of V. tach and started on metoprolol 12.5 twice daily Her blood pressure improved Asymptomatic Ordered an echocardiogram Repeat troponin Given mag 2 g to keep the mag level more than 2 Recheck mag CBC and CMP We will reduce dose of muscle relaxant Robaxin to 500 mg 05/31/19 Since started on metoprolol her blood pressure has been maintained telemetry monitoring was unremarkable Patient able to work with physical therapy We restarted Robaxin 500 mg instead of the 750 mg Discussed with the patient and she will be discharged today rehab facility and outpatient cardiology follow-up recommended Review of system Respiratory-no shortness of breath no hypoxia off of oxygen Cardiac-no chest pain no palpitations Abdominal-no diarrhea no constipation complaining of acid reflux Neuro-no focal neuro deficit, no seizure no dizziness Psychiatric-anxiety no depression Musculoskeletal-pain under control working with the PT Probable respiratory arrest postoperatively Acute hypoxic respiratory failure Patient had a possible cardiopulmonary arrest and severe bronchospasm found on intubation The possibility either she was aspirated or she had a severe bronchospasm from anesthesia and subsequent cardiac arrest CTA was unremarkable except dilated stomach and fluid-filled esophagus and noticed bronchiectasis EKG initial troponin was unremarkable Ordered a serial troponin Patient has history of cord paralysis with history of tracheostomy in the past Ordered an echocardiogram Patient is status post extubation and doing well with oxygenation She is off of oxygen Probable V. tach nonsustained Patient also had a 20 run of V. tach Needs outpatient stress test Started beta-rossana metoprolol 12.5 twice daily and patient tolerating well telemetry has been unremarkable since then Troponin trend was negative Echocardiogram was unremarkable ejection fraction was 55% no major wall motion abnormalities no major valvular lesions Patient needs to follow-up with the outpatient cardiology in 1 to 2 weeks to evaluate for any underlying ischemic heart disease History of hyperlipidemia Continue statin Hypothyroidism Continue levothyroxine Right hip arthroplasty Orthopedic following Prophylaxis-continue Lovenox PT OT continue Discharge diagnosis: Respiratory arrest, nonsustained V. tach, status post hip replacement - Time Spent with Patient Total time spent providing and/or coordinating discharge services: Greater than 30 minutes Medical - DS: Exam - Constitutional Vitals: Vital Signs Temp Resp BP Pulse Ox 05/31/19 09:03 12 117/54 100 05/31/19 08:01 18 120/91 98 05/31/19 07:01 99.0 F 23 H 140/68 97 05/31/19 06:06 30 H 94 05/31/19 06:01 28 H 123/60 98 05/31/19 05:40 22 99 05/31/19 05:02 19 158/61 95 05/31/19 04:07 16 100 05/31/19 04:03 97.8 F 14 122/69 100 05/31/19 03:59 18 99 05/31/19 03:19 126/70 100 05/31/19 02:01 98.2 F 24 H 112/57 97 05/31/19 01:01 25 H 119/62 97 05/31/19 00:41 23 H 98 05/31/19 00:01 17 113/57 97 05/30/19 23:07 17 125/67 100 05/30/19 22:01 11 L 114/58 05/30/19 21:30 17 98 05/30/19 21:01 98.2 F 27 H 114/56 95 05/30/19 20:46 26 H 96 05/30/19 20:01 20 104/55 92 05/30/19 19:30 95 05/30/19 19:01 29 H 100/55 98 05/30/19 18:01 27 H 118/54 96 05/30/19 17:01 21 116/59 94 05/30/19 16:01 98.3 F 17 101/54 95 05/30/19 15:01 19 91/59 96 05/30/19 14:01 24 H 114/60 97 05/30/19 14:00 15 96 05/30/19 13:01 99.4 F H 14 119/66 97 05/30/19 12:01 99.5 F H 17 127/62 98 Intake and Output 0105/31/19 05/31/19 21:59 05:59 13:59 Intake Total 240 60 Output Total 960 980 450 Balance -486 -980 -390 Intake: Oral 240 60 Output: Gastric Drainage 125 NG/OG 125 Urine Catheter Amount 835 980 450 Other: Meal Dinner Breakfast Percent of Meal Consumed 75% 50% Urine Appearance Clear Clear Clear Uretheral (Camacho) Clear Clear Clear Urine Color Bright Yellow Bright Yellow Bright Yellow Uretheral (Camacho) Bright Yellow Bright Yellow Pale Stool Size Large Stool Color Green Stool Consistency Loose # Bowel Movements 1 Weight 168 lb 174 lb 12.8 oz Patient Weight 06/01/19 05:59 Weight 174 lb 12.8 oz - Head Head exam: Present: normal inspection, normocephalic - Eye Eye exam: Present: conjunctival injection, normal appearance - ENT ENT exam: Present: normal exam, normal external ear exam, normal oropharynx - Neck Neck exam: Present: lymphadenopathy, normal inspection. Absent: meningismus - Respiratory Respiratory exam: Present: normal respiratory exam. Absent: accessory muscle use, chest wall tenderness - Cardiovascular Cardiovascular exam: Present: normal rate and rhythm. Absent: bradycardia, JVD, RRR, +S3, +S4 - GI/Abdominal GI/Abdominal exam: Present: normal bowel sounds, soft. Absent: distended - Neurological Exam Neurological exam: Present: alert, oriented X3, reflexes normal. Absent: motor sensory deficit - Psychiatric Psychiatric exam: Present: normal affect, normal mood. Absent: agitated, anxious Medical - DS: Data Labs on day of discharge: Labs from last 24 hours 05/31/19 05/30/19 05/30/19 05:05 11:04 11:04 WBC RBC Hgb 11.0 L Hct 34.4 MCV MCH MCHC RDW Plt Count MPV Gran % Lymph % (Auto) [place] % (Auto) Eos % (Auto) Baso % (Auto) Gran # Lymph # (Auto) [place] # (Auto) Eos # (Auto) Baso # (Auto) Sodium 140 Potassium 3.8 Chloride 106 Carbon Dioxide 21 L Anion Gap 13.0 BUN 15 Creatinine 0.7 GFR Calculation 82 Glucose 101 Calcium 8.8 Total Bilirubin 0.4 AST 32 ALT 13 Alkaline Phosphatase 35 L Troponin T < 0.01 Total Protein 5.3 L Albumin 3.0 L Globulin 2.3 Albumin/Globulin Ratio 1.3 05/30/19 11:04 WBC 10.2 RBC 3.63 Hgb 11.3 Hct 34.0 L MCV 93.7 MCH 31.1 MCHC 33.2 RDW 13.1 Plt Count 159 MPV 9.6 Gran % 77.6 Lymph % (Auto) 14.7 L [place] % (Auto) 7.3 Eos % (Auto) 0.2 Baso % (Auto) 0.2 Gran # 7.92 Lymph # (Auto) 1.50 [place] # (Auto) 0.74 Eos # (Auto) 0.02 Baso # (Auto) 0.02 Sodium Potassium Chloride Carbon Dioxide Anion Gap BUN Creatinine GFR Calculation Glucose Calcium Total Bilirubin AST ALT Alkaline Phosphatase Troponin T Total Protein Albumin Globulin Albumin/Globulin Ratio Medical - DS: A/P - Patient/Caregiver Discharge Instructions Activity: as per physical therapy, increase activity as tolerated Diet: Regular Diet Prescriptions: Aspirin [Aspirin EC] 81 mg PO BID #60 tablet. Transmission Status: Sent to [facility]. Metoprolol Tartrate [Lopressor] 12.5 mg PO BID #60 tab Prescription Printed HYDROcodone/APAP 10/325MG [[place] 10-325Mg] 1 - 2 tab PO Q4H PRN #60 tab PRN Reason: Pain Prescription Printed Methocarbamol [Robaxin] 500 mg PO BID PRN #30 tab PRN Reason: Muscle Spasm Prescription Printed Other Amb Orders: OT Discharge Order Location: None Selected Physical Therapy at Discharge - [facility] Location: None Selected To[facility]t [facility]iser Discharge Order Location: None Selected Walker Location: None Selected - Follow up Plan Follow up with: cardiology [Other] (in 7-14 days) Disposition: Xfer SNF Care Plan Goals: Follow-up with a straightener and aligner in 1 to 2 weeks to find out underlying reason for her irregular ventricular rhythm Work-up needed to rule out any underlying problem with the blood flow to the heart Prognosis: Good Rehab Potential: Fair I certify that the patient requires SNF services: Yes Overall status at discharge: patient is progressing back to baseline Medical - DS: Qual - VTE Deep Vein Thrombosis/Pulmonary Embolism Present on Admission: No
[2019-05-31] MEDS: METHOCARBAMOL 750 MG TABLET PO PRN (12:32)
== END 2019-05-31 15:40 | DRG 469 ==
LOC: MEDSUR 06:52 → ICU 17:58
PROVIDERS: ADMIT Orthopaedic Surgery Sports Medicine; ATTEND Internal Medicine